=== PATIENT | female | born 1980 | race Caucasian/White ===

== ENCOUNTER 2023-07-28 19:53 | Emergency (ER) | payer MEDICAID, SELFPAY ==
[2023-07-28] VITALS (7 sets, daily range): BP systolic 120–140; BP diastolic 79–99; PULSE 92–110; RESP 15–18; TEMP 36.2; O2SAT 97–99; BMI 28.3
--- NOTE | 2023-07-28 20:03 | EKG12_ITS ---
Test Reason : CP Blood Pressure : / mmHG Vent. Rate : 101 BPM Atrial Rate : 101 BPM P-R Int : 114 ms QRS Dur : 080 ms QT Int : 340 ms P-R-T Axes : 020 063 -06 degrees QTc Int : 440 ms Sinus tachycardia Cannot rule out Inferior infarct , age undetermined Abnormal ECG Confirmed by ZOE VERDUZCO, SERG ([id number]), digital editor JAMES PRUITT ([id number]) on 07/29/2023 10:51:33 AM Referred By: Confirmed By:SERG ENRIQUEZ MD
--- NOTE | 2023-07-28 20:03 | EDS_ITS ---
HPI History of Present Illness Chief Complaint: Chest Pain Narrative Narrative: 43-year-old female past medical history of hypertension and asthma, on Singulair, presents with chest pain and pressure that began approximately an hour ago. She states her is out of town, and she was making dinner, but had already eaten rice and veggies. She felt a bubble expanding in the middle of her chest, causing her difficulty swallowing. She had a chest pain and tightness in the middle of her chest. She states that after she had called EMS she was sweaty and short of breath when she met them outside. She denies any nausea or vomiting. No swelling of her legs, no DVT or PE risk factors. She states that her chest pressure in the bubble in her chest is not as severe as it was initially. However, she had not received any medications per EMS. [facility] Medical History Hypertension Home Medications lisinopril 20 mg tablet 20 mg PO DAILY 07/28/23 [History Last Taken Unknown] montelukast 10 mg tablet (Singulair) 10 mg PO DAILY 07/28/23 [History Last Taken Unknown] Allergy/AdvReac Type Severity Reaction Status Date / Time Penicillins AdvReac Severe Angioedema Verified 07/28/23 19:55 shellfish derived AdvReac Severe Angioedema Verified 07/28/23 19:55 venom-honey bee AdvReac Severe Swelling Verified 07/28/23 19:55 Social History Smoking Status: Never smoker ROS ROS ED ROS Narrative Constitutional: No fever, no chills. [place] sweaty prior to EMS arrival. HEENT: No sore throat. No neck pain. No loss of vision. No rhinorrhea. Cardiovascular: Positive chest pressure bubble that is expanding type of chest pain. No palpitations. No pedal edema. Respiratory: No cough, positive shortness of breath. Abdominal: No abdominal pain. No nausea. No vomiting. Genitourinary: No dysuria. No hematuria. Musculoskeletal: No myalgias. No arthralgias. Neurologic: No headaches. No dizziness. No lightheadedness. Skin: No rash. No change in color. Psychiatric: No depression. No anxiety. EXAM Physical Exam Narrative Exam Narrative: Afebrile. Vital signs noted. HEENT: Normocephalic. Atraumatic. PERRL, EOMI. Neck soft and supple. No point tenderness or step off. Cardiovascular: Regular rate and rhythm. No murmurs, rubs, or gallops appreciated. Respiratory: No tachypnea. Lungs clear to auscultation bilaterally. Gastrointestinal: Abdomen soft, nontender, with normoactive bowel sounds. No rebound or guarding. Neurological: Awake. Alert. Nonfocal, nonlateralizing. Skin: No rash. Normal color. No pallor. Musculoskeletal: No pedal edema. Full range of motion extremities. Const Vital Signs: 07/28/23 19:56 07/28/23 19:54 07/28/23 20:15 Temperature 97.2 F L Temperature Source Temporal Pulse Rate 110 H Respiratory Rate 18 Respiratory Effort Normal Non-Labored Blood Pressure 140/99 H Blood Pressure Mean 112 Pulse Ox 97 99 Oxygen Delivery Method Room Air Room Air 07/28/23 20:39 07/28/23 21:00 07/28/23 22:00 Temperature Temperature Source Pulse Rate 92 101 H 106 H Respiratory Rate 16 17 17 Respiratory Effort Blood Pressure 132/91 H Blood Pressure Mean 104 Pulse Ox 98 98 98 Oxygen Delivery Method Room Air Room Air Room Air 07/28/23 23:00 Temperature Temperature Source Pulse Rate 105 H Respiratory Rate 16 Respiratory Effort Blood Pressure 120/79 Blood Pressure Mean 92 Pulse Ox 98 Oxygen Delivery Method Room Air MDM MDM MDM Narrative Medical decision making narrative: In the differential diagnosis is GERD versus acute coronary syndrome versus pulmonary embolism versus pneumonia. Pneumothorax is also in the differential. However, history and physical does not support pneumonia or pneumothorax. She is mildly tachycardic intermittently so D-dimer will be obtained. EKG was obtained and interpreted by myself independently as normal sinus rhythm/tachyc ardia at 101 bpm without ectopy or acute ST changes. No STEMI. I reviewed her laboratory work and she has a normal white count of 8.4, hemoglobin normal at 14.2, hematocrit 41.7 with normal platelet count of 329. D-dimer is negative at less than 0.27. I have low suspicion for pulmonary embolism or aortic dissection. Additionally, she has no back pain or tearing sensation and her blood pressure is appropriate in the emergency department. Review of her basic metabolic panel shows hypokalemia of 3.3 which was replaced orally with 40 mEq. Glucose is appropriately elevated at 150 with a normal anion gap of 5. Her initial BMP and troponin were hemolyzed so there was slight delay in the redraw and results. Her first troponin is 4. Chest x-ray in 1 view interpreted by myself independently shows no evidence of pneumothorax or pneumonia. I do not feel antibiotics are indicated. I reviewed the radiology report which confirms my independent interpretation. Upon repeat examination, patient states that the bubble in her chest has disappeared. Her blood pressure is borderline elevated at 132/91. I feel that as long as her repeat, 2-hour troponin is negative, that she could be discharged to follow-up with her primary care provider. She may have had indigestion/GERD or problems with a hiatal hernia. I do not feel CT imaging is indicated. On check of her lipase, it is normal at 33, repeat troponin is 5. At this point in time, as she is pain-free I feel she can be discharged to follow-up with her primary care provider. I do not feel she requires observation at this time. Return instructions were reviewed. Disposition is discharged home in stable condition. History & Record Review Discussion w/independent historian: Patient and Family Additional record(s) reviewed:: No prior records Lab Data Attestation: I reviewed the patient's lab results. Labs: Laboratory Results - last 24 hr 07/28/23 07/28/23 07/28/23 20:10 20:55 22:59 WBC 8.4 RBC 4.66 Hgb 14.2 Hct 41.7 MCV 89.5 MCH 30.5 MCHC 34.1 RDW Std Deviation 39.8 RDW Coeff of Elias 12.2 Plt Count 329 MPV 9.8 Immature Gran % (Auto) 0.400 Neut % (Auto) 58.6 Lymph % (Auto) 31.3 [place] % (Auto) 6.0 Eos % (Auto) 3.0 Baso % (Auto) 0.7 Absolute Neuts (auto) 4.9 Absolute Lymphs (auto) 2.62 Nucleated RBC % 0 D-Dimer Quant (PE/DVT) < 0.27 L Sodium Cancelled 138 Potassium Cancelled 3.3 L Chloride Cancelled 107 Carbon Dioxide Cancelled 26.0 Anion Gap Cancelled 5 BUN Cancelled 9 Creatinine Cancelled 0.98 Estim Creat Clear Calc Cancelled 71.98 Est GFR (MDRD) Af Amer Cancelled 80 Est GFR (MDRD) Non-Af Cancelled 66 BUN/Creatinine Ratio Cancelled 9.2 L Glucose Cancelled 150 H Calcium Cancelled 8.6 Troponin I High Sens Cancelled 4 5 Lipase Cancelled 33 Radiography Diagnostic Testing: Clinical Impression(s) from Imaging Studies Chest X-Ray 07/28/23 20:15 IMPRESSION: Normal x-ray examination of the chest. Electronically Signed: Twin Garcia MD at 20:42 EST Reading Location ID and State: [facility] / [place] Tel , Service support , Discharge Plan Triage Chief Complaint: Chest Pain ED Provider: Jameel William Dx/Rx/DC Orders Clinical Impression: Chest pain, Acute hypokalemia Instructions: ED Chest Pain, Uncertain Cause, ED Hypokalemia Prescriptions: No Action lisinopril 20 mg tablet 20 mg PO DAILY montelukast [Singulair] 10 mg tablet 10 mg PO DAILY Primary Care Provider: Care Physician,No Primary Referrals: [facility] Doctor,Out of [Non-Staff] - Activity Restrictions/Additional Instructions: Follow-up with your primary care physician in the next 3 to 5 days if possible. Return with increasing chest pain, new or worsening symptoms. Disposition Disposition: Home, Self Care
[2023-07-28] MEDS: Aspirin 81 MG TAB.CHEW 324 MG PO (20:12)
--- NOTE | 2023-07-28 20:15 | RAD_ITS ---
STUDY: X-RAY CHEST REASON FOR EXAM: Female, 43 years old. chest pain TECHNIQUE: AP portable COMPARISON: None. FINDINGS: The lungs are clear and expanded. There is no demonstrated pleural abnormality. Normal size heart. Normal mediastinum and claudio. Normal visualized pulmonary arteries. Normal visualized aortic arch and descending thoracic aorta. Normal visualized thoracic spine. Normal visualized ribs, clavicles, and shoulders. There is no demonstrated abnormality of the visualized soft tissue structures of the upper abdomen. RAD/Chest 1 View (Portable) IMPRESSION: Normal x-ray examination of the chest. Electronically Signed: Twin Garcia MD at 20:42 EST ,
[2023-07-28 20:32] LABS: Absolute Lymphocyte Count 2.62 X10^3/uL (0.83-4.51); Absolute Neutrophil Count 4.9 X10^3/uL (2.0-7.7); Basophil# 0.06 X10^3/uL; Basophil% 0.7 % (0-1); Eosinophil# 0.25 X10^3/uL; Hematocrit 41.7 % (37-47); Hemoglobin 14.2 g/dL (12.0-15.0); Lymphocyte # 2.62 X10^3/ul (0.83-4.51); Lymphocyte % 31.3 % (19-41); Mean Corp Hgb Conc 34.1 g/dL (32-36); Mean Corpuscular Hgb 30.5 pg (27.0-32.0); Mean Corpuscular Volume 89.5 fL (81-99); Mean Platelet Vol. 9.8 fl (6.2-12.0); NRBC Flagged by Analyzer 0 % (0-5); Neutrophil # 4.91 X10^3/uL (2.7-7.7); Neutrophil % 58.6 % (47-70); Platelet Count 329 K/mm3 (150-450); RBC Distribution Width CV 12.2 % (11.6-14.6); RBC Distribution Width SD 39.8 fl (35.1-43.9); Red Blood Count 4.66 M/mm3 (4.2-5.4); White Blood Count 8.4 K/mm3 (4.4-11.0)
[2023-07-28] MEDS: 0.9% Normal Saline (1000mL) 1,000 ML 250 ML IV (20:37)
--- NOTE | 2023-07-28 20:41 | ED.RN ---
NO NITRO GIVEN AT THIS TIME, PT DENIES PAIN
[2023-07-28 20:56] LABS: D-Dimer Quantitative (DVT/PE) < 0.27 FEU/ug/m (0.27-0.49)
[2023-07-28 21:24] LABS: Anion Gap 5 (5-15); BUN 9 mg/dL (7-18); BUN/Creat Ratio 9.2 RATIO (10-20); Calcium,Total 8.6 mg/dL (8.5-10.1); Chloride 107 mmol/L (98-107); Creatinine, Serum 0.98 mg/dL (0.55-1.02); EST Glomerular Filtration Rate 66 mL/min (>60); Est Glom Filt Rate - Afr Amer 80 mL/min (>60); Estimated Creatinine Clearance 71.98 ml/min; Glucose 150 mg/dL (74-106); Potassium 3.3 mmol/L (3.5-5.1); Sodium Level 138 mmol/L (136-145); Troponin-I HS (w/2H Reflex) 4 pg/mL (3.0-54.0)
[2023-07-28 22:37] LABS: Lipase 33 U/L (13-75)
[2023-07-28] MEDS: Potassium Chloride Oral Tablet 20 MEQ 40 MEQ PO (22:53)
[2023-07-28 23:00] LABS: Reflex Troponin-HS? (from REC) Y
[2023-07-28 23:26] LABS: Troponin-I HS 5 pg/mL (3.0-54.0)
== END 2023-07-28 23:37 | disposition home or self-care (01) ==
PROVIDERS: Emergency Provider Emergency Medicine; Visit Provider Emergency Medicine
DX: R07.9 Chest pain, unspecified (principal); E87.6 Hypokalemia; I10 Essential (primary) hypertension; Z79.899 Other long term (current) drug therapy
CPT/HCPCS: 71045; 80048; 83690; 84484; 85025; 85379; 93005; 96360; 96361; 99285; J7030; A4216

== ENCOUNTER → 2023-10-25 | Outpatient (CLI) | payer BC, SELFPAY ==
--- NOTE | 2023-10-25 | TONS_PTH ---
PATHOLOGY RESULTS PATIENT: TOSHA THOMPSON LOC: [facility]#:[id number] AGE/SX: 43/F ROOM: RE10/25/[address]: Dr. Bubba Holguin MD : 1980 BED: DIS: 10/25/2023 SPEC #: [id number] RECD: 10/26/23 08:32 STATUS: SONIDO LEILANI #: [id number] HANNAH: 10/25/23 00:[address]: Bubba Holguin DEPT: SURGICAL PATHOLOGY RECD BY: Faby Goodman ENTERED: 10/26/23 08:32 SP TYPE: TONSILS OTHR DR: No Primary Care Phys WAS Tissues: Tonsil, NOS Procedures: Surgery Specimen Level III HEADER OPERATION: Tonsillectomy PRE-OP DIAGNOSIS: Nasal congestion, hypertrophy of nasal turbinates, chronic ethmoidal sinusitis, obstructive sleep apnea, hypertrophy of tonsils TISSUE SUBMITTED: Bilateral tonsils, right tonsil pinned MICROSCOPIC DIAGNOSIS Bilateral tonsils, tonsillectomy: Reactive lymphoid hyperplasia. Focal actinomyces colonization. ARTHUR:fadi 10/27/2023 MICROSCOPIC DESCRIPTION Slides are reviewed. GROSS DESCRIPTION Received is one container labeled with the patient's name and designated tonsils - pin on right are two tonsils that in aggregate weigh 18.4 gm. The right tonsil has a pin on it and measures 4.0 x 2.0 x 2.5 cm. The left tonsil measures 4.0 x 2.5 x 2.0 cm. Both tonsils are similar in appearance. The external surfaces are pink-ruelas, smooth, glistening and somewhat lobulated. Focally they are hemorrhagic, granular and bear cautery artifact. Serial cross sections through the tonsils reveal normal tonsillar architecture. Sections are submitted in two cassettes as follows: 1 - right tonsil, 2 - left tonsil. / ARTHUR:fadi 10/26/2023 TC:5 CPT: 05960 x2
== END | disposition home or self-care (01) ==
LOC: LABSPEC 16:15
PROVIDERS: Referring Provider Otolaryngology; Visit Provider Otolaryngology
DX: J34.3 Hypertrophy of nasal turbinates (principal); J32.2 Chronic ethmoidal sinusitis; J35.1 Hypertrophy of tonsils; G47.33 Obstructive sleep apnea (adult) (pediatric)
CPT/HCPCS: 88304

== ENCOUNTER 2023-10-26 21:26 | Day surgery (SDC) | payer BC, SELFPAY ==
[2023-10-26 21:28] VITALS: TEMP 37; BMI 26.9
--- NOTE | 2023-10-26 21:33 | EX.ED.DYSGE1 ---
HPI History of Present Illness Chief Complaint: Other, Pain/Inj Detail of Chief Complaint: Post tonsillar bleed Informant: patient Narrative Narrative: Patient reportedly had tonsillectomy yesterday with Dr. Bubba Holguin at the outpatient surgery center. She states she was dozing in her chair tonight and woke up with blood running down her throat. She states it was bleeding rather briskly on the way to the emergency room. Symptoms are improving at this time. [facility] Medical History (Updated 10/26/23 @ 22:[address] Sana Tamayo MD) Hypertension Home Medications lisinopril 20 mg tablet 20 mg PO DAILY 07/28/23 [History Last Taken Unknown] montelukast 10 mg tablet (Singulair) 10 mg PO DAILY 07/28/23 [History Last Taken Unknown] Allergy/AdvReac Type Severity Reaction Status Date / Time Penicillins AdvReac Severe Angioedema Verified 07/28/23 19:55 shellfish derived AdvReac Severe Angioedema Verified 07/28/23 19:55 venom-honey bee AdvReac Severe Swelling Verified 07/28/23 19:55 Surgical History (Updated 10/26/23 @ 21:48 by Carri Madison) History of tonsillectomy Social History (Updated 10/26/23 @ 21:48 by Carri Madison) household members: significant other Smoking Status: Never smoker ROS ROS ED Constitutional Constitutional ED: Denies chills or fever(s) Eyes Eyes: Denies change in vision or discharge from eye(s) ENT ENT ED: Reports sore throat; Denies discharge from eye(s) or rhinorrhea Cardiovascular Cardiovascular: Denies chest pain Respiratory/Chest Respiratory/Chest: Denies cough or dyspnea Gastrointestinal Gastrointestinal: Denies abdominal pain, nausea or vomiting Musculoskeletal Musculoskeletal: Denies back pain or extremity pain Integumentary Denies Abrasions or rash Neurologic Neurologic: Denies headache(s) or weakness Psychiatric Psychiatric: Denies anxiety or depression Endocrine Endocrinology: Denies polydipsia or polyuria Allergic/Immunologic Allergic/Immunologic ED: Denies lip swelling or urticaria EXAM Physical Exam Const Vital Signs: 10/26/23 21:28 10/26/23 21:46 10/26/23 22:13 Temperature 98.6 F Temperature Source Temporal Pulse Rate 112 H Respiratory Rate 18 Respiratory Effort Normal Non-Labored Respiratory Pattern Normal Blood Pressure 143/95 H Blood Pressure Mean 111 Blood Pressure Source Blood Pressure Position Blood Pressure Location Pulse Ox 10/26/23 22:18 Temperature Temperature Source Pulse Rate 104 H Respiratory Rate 15 Respiratory Effort Respiratory Pattern Blood Pressure 143/94 H Blood Pressure Mean 110 Blood Pressure Source Monitor Blood Pressure Position Sitting Blood Pressure Location Right Arm Pulse Ox 98 Positive well nourished and well developed General Appearance ED: well developed HEENT HEENT Narrative: Scab intact on the right tonsillar bed. Does appear there is recent bleeding from the left tonsillar bed. No significant bleeding at this time. Chest Wall inspection of chest normal and palpation of chest normal Resp normal respiratory effort Cardio Rate: tachycardic Extremity normal to inspection Neuro oriented x3 and no sensory deficits noted Motor Exam: strength 5/5 throughout Psych mental status grossly normal MDM MDM MDM Narrative Medical decision making narrative: IV line ordered along with lab work. I spoke with Dr. Bubba Holguin, the patient surgeon immediately after I saw the patient. He will be in to evaluate her. Her last p.o. intake about 2 hours prior to arrival. Lab Data Labs: Laboratory Results - last 24 hr 10/26/23 21:42 WBC 19.6 H RBC 4.69 Hgb 14.0 Hct 42.2 MCV 90.0 MCH 29.9 MCHC 33.2 RDW Std Deviation 41.2 RDW Coeff of Elias 12.6 Plt Count 422 MPV 9.8 Immature Gran % (Auto) 0.600 Neut % (Auto) 72.2 H Lymph % (Auto) 20.5 [place] % (Auto) 6.2 Eos % (Auto) 0.2 Baso % (Auto) 0.3 Absolute Neuts (auto) 14.2 H Absolute Lymphs (auto) 4.02 Nucleated RBC % 0 PT 13.0 INR 1.0 APTT 24.8 Sodium 138 Potassium 3.9 Chloride 107 Carbon Dioxide 25.0 Anion Gap 6 BUN 11 Creatinine 0.94 Estim Creat Clear Calc 82.94 Est GFR (MDRD) Af Amer 84 Est GFR (MDRD) Non-Af 69 BUN/Creatinine Ratio 11.7 Glucose 111 H Calcium 9.4 Treatment and Re-Evaluation :: CBC was a white count of 19.6 with a hemoglobin of 14. This is stable from her prior hemoglobin values. 72% neutrophils noted. Chemistry studies unremarkable. Dr. Singh presented to the emergency room and saw the patient. Plan will be to take her to the OR. Discharge Plan Triage Chief Complaint: Other, Pain/Inj ED Provider: Sana Tamayo Dx/Rx/DC Orders Clinical Impression: Postoperative hemorrhage of tonsil Primary Care Provider: Care Physician,No Primary Disposition Disposition: Acute Care Hospital [facility]
[2023-10-26 21:46] VITALS: BP 143/95; PULSE 112; RESP 18
[2023-10-26 21:48] LABS: Absolute Lymphocyte Count 4.02 X10^3/uL (0.83-4.51); Absolute Neutrophil Count 14.2 X10^3/uL (2.0-7.7); Basophil# 0.05 X10^3/uL; Basophil% 0.3 % (0-1); Eosinophil# 0.03 X10^3/uL; Eosinophils% 0.2 % (0-5); Hematocrit 42.2 % (37-47); Lymphocyte # 4.02 X10^3/ul (0.83-4.51); Lymphocyte % 20.5 % (19-41); Mean Corp Hgb Conc 33.2 g/dL (32-36); Mean Corpuscular Hgb 29.9 pg (27.0-32.0); Mean Platelet Vol. 9.8 fl (6.2-12.0); Monocyte# 1.22 X10^3/uL; Monocyte% 6.2 % (0-10); NRBC Flagged by Analyzer 0 % (0-5); Neutrophil # 14.16 X10^3/uL (2.7-7.7); Neutrophil % 72.2 % (47-70); Platelet Count 422 K/mm3 (150-450); RBC Distribution Width CV 12.6 % (11.6-14.6); RBC Distribution Width SD 41.2 fl (35.1-43.9); Red Blood Count 4.69 M/mm3 (4.2-5.4); White Blood Count 19.6 K/mm3 (4.4-11.0)
[2023-10-26] MEDS: 0.9% Normal Saline (1000mL) 1,000 ML 150 ML IV (21:49)
[2023-10-26 22:02] LABS: Anion Gap 6 (5-15); BUN 11 mg/dL (7-18); BUN/Creat Ratio 11.7 RATIO (10-20); Calcium,Total 9.4 mg/dL (8.5-10.1); Chloride 107 mmol/L (98-107); Creatinine, Serum 0.94 mg/dL (0.55-1.02); EST Glomerular Filtration Rate 69 mL/min (>60); Est Glom Filt Rate - Afr Amer 84 mL/min (>60); Estimated Creatinine Clearance 82.94 ml/min; Glucose 111 mg/dL (74-106); Potassium 3.9 mmol/L (3.5-5.1); Sodium Level 138 mmol/L (136-145)
[2023-10-26 22:14] LABS: Partial Thromboplast Time 24.8 Seconds (24.1-36.2)
[2023-10-26 22:18] VITALS: BP 143/94; PULSE 104; RESP 15; O2SAT 98; BMI 26.9
[2023-10-26 23:31] VITALS: BP 124/71; PULSE 81; RESP 16; TEMP 36.4; O2SAT 99
[2023-10-27 00:20] VITALS: BP 109/83; BP 143/95; PULSE 108; RESP 12; TEMP 36.6; O2SAT 90
--- NOTE | 2023-10-27 00:20 | PCM.OPRPT ---
Report of Operation Date of Procedure: 10/27/23 Pre-Operative Diagnosis: post tonsillectomy hemorrhage Post-Operative Diagnosis: same Surgery/Procedure Performed:: cautery post tonsillectomy hemorrhage Description of Surgical Findings:: Bleeding left inferior pole Surgeon: Bubba Holguin Type of Anesthesia: General Anesthesiologist: Rory Villalobos Estimated Blood Loss (mL): minimal Description of Procedure: The patient was taken to the operating room on 10/27/2023. The patient was placed in the supine position on the operating table. They were given sufficient general endotracheal anesthesia. The table was turned 90 degrees in a clockwise fashion. A Lang mouthgag was inserted the patient's mouth. The patient was then suspended on a Hernández stand. Clot was suctioned from the left tonsillar fossa. She had oozing from the inferior fossa. This was easily cauterized with suction cautery. I then treated the inferior and superior tonsillar poles with topical tannic acid on a tonsil ball. Once hemostasis was achieved an orogastric tube was inserted into the esophagus and placed into the stomach. Stomach contents were suctioned and the OG tube was removed. No further bleeding was seen. I then irrigated the tonsillar fossa and all irrigant was suctioned in the oropharynx. Again no further bleeding was seen. The gag was closed it was reopened to inspect for bleeding there was none. The gag was then removed. The patient was turned back to the regular anesthesia position and awoken.She was brought to recovery room in stable condition. blood loss minimal , replacement none. sponge,needle, and instrument count were correct at the end of the procedure.
--- NOTE | 2023-10-27 00:24 | PCM.DC.SUM ---
Providers Primary Care Physician: Emmy Primary Care Phys Reason For Visit: post op bleedinmg Medications at Discharge Home Medications lisinopril 20 mg tablet 20 mg PO DAILY 07/28/23 montelukast 10 mg tablet (Singulair) 10 mg PO DAILY 07/28/23 Weight / BMI Weight Weight: 77.8 kg Body Mass Index (BMI) 26.9 ABG / Lab / Microbiology Data 10/26/23 21:42 10/26/23 21:42 Laboratory: Laboratory Results - last 24 hr 10/26/23 21:42: WBC 19.6 H, RBC 4.69, Hgb 14.0, Hct 42.2, MCV 90.0, MCH 29.9, MCHC 33.2, RDW Std Deviation 41.2, RDW Coeff of Elias 12.6, Plt Count 422, MPV 9.8, Immature Gran % (Auto) 0.600, Neut % (Auto) 72.2 H, Lymph % (Auto) 20.5, [place] % (Auto) 6.2, Eos % (Auto) 0.2, Baso % (Auto) 0.3, Absolute Neuts (auto) 14.2 H, Absolute Lymphs (auto) 4.02, Nucleated RBC % 0, PT 13.0, INR 1.0, APTT 24.8, Sodium 138, Potassium 3.9, Chloride 107, Carbon Dioxide 25.0, Anion Gap 6, BUN 11, Creatinine 0.94, Estim Creat Clear Calc 82.94, Est GFR (MDRD) Af Amer 84, Est GFR (MDRD) Non-Af 69, BUN/Creatinine Ratio 11.7, Glucose 111 H, Calcium 9.4 D/C Instructions Discharge Diet: Soft diet Please Follow Up With: Bubba Holguin MD When: 2 weeks Meaningful Use Info Meaningful Use Diagnoses (Choose all that apply): None applicable Discharge Plan Admission Attending Provider: Bubba Holguin Primary Care Provider: Gogo PhysicianEmmy Primary Discharge Orders/Prescriptions Prescriptions: No Action lisinopril 20 mg tablet 20 mg PO DAILY montelukast [Singulair] 10 mg tablet 10 mg PO DAILY Referrals / Follow Up: Care Physician,Emmy Primary [Primary Care Provider] - Disposition Disposition (needs filled in before D/C Order can be placed): Home, Self Care
[2023-10-27 00:25] VITALS: BP 115/82; BP 143/95; PULSE 101; RESP 16; O2SAT 91
[2023-10-27 00:30] VITALS: BP 118/62; BP 143/95; PULSE 99; RESP 16; O2SAT 96
[2023-10-27 00:35] VITALS: BP 119/88; BP 143/95; PULSE 101; RESP 16; O2SAT 94
[2023-10-27 00:45] VITALS: BP 117/92; BP 143/95; PULSE 104; RESP 16; TEMP 37.3; O2SAT 95
[2023-10-27 01:05] VITALS: BP 143/95
== END 2023-10-27 01:10 | disposition home or self-care (01) ==
LOC: ED 22:10 → SDC 22:19 → AC 22:20
PROVIDERS: Emergency Provider Emergency Medicine; Referring Provider Otolaryngology; Visit Provider Otolaryngology
PROC: (CPT 42960; principal; 2023-10-26 23:05)
DX: J95.830 Postprocedural hemorrhage of a respiratory system organ or structure following a respiratory system procedure (principal); I10 Essential (primary) hypertension; Z79.899 Other long term (current) drug therapy
CPT/HCPCS: 42960; 00170; 80048; 85025; 85610; 85730; 99285; J7030; A4216; J2405